=== PATIENT | male | born 1950 | race Caucasian/White ===

== ENCOUNTER 2019-11-29 17:50 | Emergency (ER) | payer OTHER | END 2019-11-29 18:42 | disposition home or self-care (01) | LOC: NAV ERS 17:50 | DX: K03.81 Cracked tooth (principal); K02.9 Dental caries, unspecified; E03.9 Hypothyroidism, unspecified; Z87.891 Personal history of nicotine dependence; Z79.899 Other long term (current) drug therapy | CPT/HCPCS: 99282 ==